=== PATIENT | female | born 1960 | race Asian ===

== ENCOUNTER → 2020-07-07 | Outpatient (CLI) | payer MEDICAID ==
[~2020-07-07] MED LIST: ACET-2708 PO; AMIT25TA9 PO; BACL20TA PO; BISA-81 PO; BUPR450F2 BC; CALC1CAP22 PO; CARI350T27 PO; CELE100C PO; CHOL100044 PO; CLOB60CR4 TP; DICL100G31 TP; DOCU-138 PO; FISH1CAP34 PO; FLUO15CR2 TP; FLUO20CA33 PO; FLUO60SO3 TP; GABA-532 PO; LEVO75TA7 PO; LIDO30CR TP; LOVA40TA73 PO; MELA5TAB19 PO; METF-414 PO; METH-774 PO; METO-539 PO; MULT-1146 PO; TAPE75TA2 PO; TRAZ150T78 PO
== END | disposition home or self-care (01) ==
LOC: LAB 10:46
PROVIDERS: ATTEND Neurological Surgery
DX: Z01.812 Encounter for preprocedural laboratory examination (principal); Z20.822 Contact with and (suspected) exposure to COVID-19
CPT/HCPCS: 87426

== ENCOUNTER 2020-07-09 05:30 | Inpatient (IN) | payer MEDICAID ==
[~2020-07-09] VITALS: Ht 152.4 cm; Wt 57.2 kg
[~2020-07-09 05:30] MED LIST changes: -AMIT25TA9 PO; -BACL20TA PO; -CALC1CAP22 PO; -CARI350T27 PO; -CHOL100044 PO; -CLOB60CR4 TP; -DICL100G31 TP; -FISH1CAP34 PO; -FLUO15CR2 TP; -FLUO60SO3 TP; -GABA-532 PO; -LIDO30CR TP; -LOVA40TA73 PO; -MELA5TAB19 PO; -METH-774 PO; -MULT-1146 PO; -TAPE75TA2 PO
[2020-07-09] MEDS ORDERED: LACTATED RINGERS 1,000 ML IV SCH (06:00)
[2020-07-09] MEDS ORDERED: THROMBIN (BOVINE) 5000 UNITS/VIAL TOP ONE (06:07)
[2020-07-09] MEDS ORDERED: SODIUM CHLORIDE 0.9% INJ 10ML FLUSH IVF ONE (06:07)
[2020-07-09] MEDS ORDERED: BACITRACIN 50,000 UNITS/VIAL ONE (06:07)
[2020-07-09] MEDS ORDERED: GLYCOPYRROLATE 0.2 MG/ML 2ML VIAL ONE (07:00)
[2020-07-09] MEDS ORDERED: NEOSTIGMINE METHYLSULFATE 1MG/ML 10 ML VIAL ONE (07:00)
[2020-07-09] MEDS ORDERED: ROCURONIUM BROMIDE 10MG/ML VIAL 5ML IV ONE (07:00)
[2020-07-09] MEDS ORDERED: MIDAZOLAM HCL 2 MG/2 ML VIAL ONE (07:00)
[2020-07-09] MEDS ORDERED: PROPOFOL 200MG/20ML VIAL IV ONE (07:00)
[2020-07-09] MEDS ORDERED: FENTANYL CITRATE/PF 50MCG/ML 2ML VIAL ONE (07:00)
[2020-07-09] MEDS ORDERED: ONDANSETRON HCL 4MG/2ML INJ IV PRN ×3 (07:15→09:45)
[2020-07-09] MEDS ORDERED: HYDRALAZINE 20MG/ML VIAL IV PRN (07:15)
[2020-07-09] MEDS ORDERED: MEPERIDINE HCL/PF 25MG/ML CPJ IV PRN ×2 (07:45→09:45)
[2020-07-09] MEDS ORDERED: HYDROMORPHONE HCL/PF 2MG/ML CPJ IV PRN (07:45)
[2020-07-09] MEDS ORDERED: LABETALOL 5MG/ML SYR 20 MG/4 ML SYRINGE IV PRN ×2 (07:45→09:45)
[2020-07-09] MEDS ORDERED: DEXAMETHASONE 4MG/ML 1ML VIAL ONE (07:46)
[2020-07-09] MEDS ORDERED: HYDROMORPHONE HCL/PF 2MG/ML (OR) ONE (08:37)
[2020-07-09] MEDS ORDERED: NALOXONE INJ IV PRN (09:15)
[2020-07-09] MEDS ORDERED: ONDANSETRON INJ IV PRN (09:15)
[2020-07-09] MEDS: HYDROMORPHONE PCA 10MG/50ML IV PRN (09:23)
[2020-07-09] MEDS: DEXT 5%/LACTATED RINGERS 1,000 ML IV SCH ×2 (09:55→20:00)
[2020-07-09] MEDS: HYDROMORPHONE HCL/PF 2MG/ML CPJ IV PRN ×3 (10:01→11:19)
[2020-07-09] MEDS ORDERED: DIPHENHYDRAMINE 50MG/ML VIAL IV SCH (12:15)
[2020-07-09] MEDS ORDERED: CEFAZOLIN SODIUM 1000MG/VIAL IV SCH (14:00)
[2020-07-09 15:00] VITALS: BP 104/47
[2020-07-09] MEDS ORDERED: DICL1KIT14 TP (16:46)
[2020-07-09] MEDS ORDERED: LIDO28.35 TP (16:46)
[2020-07-09] MEDS ORDERED: LOVA10TA54 MT (16:46)
[2020-07-09] MEDS ORDERED: IPRATROPIUM/ALBUTEROL 0.5-3(2.5)MG/3ML NEB HHN PRN (17:30)
[2020-07-09] MEDS ORDERED: BISACODYL 5MG TABLET PO PRN (17:30)
[2020-07-09] MEDS: CEFAZOLIN 1000MG PREMIX 50 ML IV SCH (18:37)
[2020-07-09] MEDS: DIPHENHYDRAMINE INJ IV PRN (21:29)
[2020-07-10] VITALS: BP 103/50
[2020-07-10] MEDS: CEFAZOLIN 1000MG PREMIX 50 ML IV SCH (02:10)
[2020-07-10] MEDS: DIPHENHYDRAMINE INJ IV PRN ×2 (02:11→06:13)
[2020-07-10] MEDS: HYDROMORPHONE PCA 10MG/50ML IV PRN ×2 (02:52→23:11)
[2020-07-10 04:00] VITALS: BP 122/54
[2020-07-10] MEDS: DEXT 5%/LACTATED RINGERS 1,000 ML IV SCH (06:13)
[2020-07-10 07:01] LABS: CHLORIDE 107 mEq/L (98-107)
[2020-07-10 07:36] LABS: BASOPHILS % 0.1 % (0.0-2.0); HEMATOCRIT. 34.4 % (36.0-48.0); HEMOGLOBIN. 11.5 g/dL (12.0-16.0); LYMPHOCYTES % 40.8 % (20.0-50.0); MEAN CORPUSCULAR HEMOGLOBIN 33.2 pg (28.0-32.0); MEAN CORPUSCULAR VOLUME 99.6 fL (81.0-99.0); MEAN PLATELET VOLUME 7.7 fl (7.4-10.4); MONOCYTES % 7.8 % (2.0-8.0); NEUTROPHILS % 51.3 % (40.0-76.0); PLATELET 223 x1000/uL (130-400); RED BLOOD CELL COUNT 3.46 mill/uL (4.2-5.4); RED CELL DISTRIBUTION WIDTH 13.8 % (11.6-14.6)
[2020-07-10 08:00] VITALS: BP 117/56
[2020-07-10] MEDS: DOCUSATE SODIUM 100MG CAPSULE PO SCH (09:02)
[2020-07-10] MEDS: HYDROCODONE/APAP 7.5/325MG 1 TAB TABLET PO PRN (09:49)
[2020-07-10] MEDS: LEVOTHYROXINE SODIUM 75MCG TABLET PO SCH (11:34)
[2020-07-10] MEDS ORDERED: CEFAZOLIN 1000MG PREMIX 50 ML IV SCH (12:00)
[2020-07-10] MEDS ORDERED: DEXTROSE 50% WATER 50ML SYRINGE IV PRN (13:30)
[2020-07-10] MEDS ORDERED: HYDRALAZINE 5 MG in SODIUM CHLORIDE 0.9% 49.5 ML IV PRN (14:00)
[2020-07-10] MEDS: FLUOXETINE HCL 20MG CAPSULE PO SCH (14:20)
[2020-07-10] MEDS: METFORMIN HCL 500MG TABLET PO SCH ×2 (14:20→17:06)
[2020-07-10] MEDS: BLOOD SUGAR DIAGNOSTIC STRIP TEST SCH ×2 (17:05→21:40)
[2020-07-10] MEDS: INSULIN LISPRO 100 UNITS/ML SUBCUT SCH ×2 (17:06→21:00)
[2020-07-10] MEDS: METOPROLOL TARTRATE 50MG TABLET PO SCH (17:15)
[2020-07-10 20:00] VITALS: BP 143/67
[2020-07-10] MEDS: TRAZODONE HCL 50MG TABLET PO SCH (21:40)
[2020-07-10] MEDS: ATORVASTATIN CALCIUM 10MG TABLET PO SCH (21:40)
[2020-07-11] VITALS: BP 120/63
[2020-07-11 04:00] VITALS: BP 138/69
[2020-07-11] MEDS: BLOOD SUGAR DIAGNOSTIC STRIP TEST SCH ×4 (06:46→21:01)
[2020-07-11] MEDS: LEVOTHYROXINE SODIUM 75MCG TABLET PO SCH (06:58)
[2020-07-11] MEDS: INSULIN LISPRO 100 UNITS/ML SUBCUT SCH ×4 (07:50→21:08)
[2020-07-11 08:00] VITALS: BP 144/57
[2020-07-11] MEDS: DOCUSATE SODIUM 100MG CAPSULE PO SCH (08:51)
[2020-07-11] MEDS: METFORMIN HCL 500MG TABLET PO SCH ×2 (08:51→17:00)
[2020-07-11] MEDS: FLUOXETINE HCL 20MG CAPSULE PO SCH (08:51)
[2020-07-11] MEDS: METOPROLOL TARTRATE 50MG TABLET PO SCH ×2 (08:51→21:01)
[2020-07-11 12:00] VITALS: BP 140/71
[2020-07-11] MEDS: HYDROCODONE/APAP 7.5/325MG 1 TAB TABLET PO PRN (12:30)
[2020-07-11] MEDS: HYDROMORPHONE HCL/PF 2MG/ML CPJ IV PRN ×2 (14:22→19:32)
[2020-07-11 16:00] VITALS: BP 125/72
[2020-07-11 20:00] VITALS: BP 118/61
[2020-07-11] MEDS: ATORVASTATIN CALCIUM 10MG TABLET PO SCH (21:00)
[2020-07-11] MEDS: TRAZODONE HCL 50MG TABLET PO SCH (21:00)
[2020-07-12] VITALS: BP 132/62
[2020-07-12] MEDS: HYDROMORPHONE HCL/PF 2MG/ML CPJ IV PRN ×6 (00:06→21:42)
[2020-07-12] MEDS: LEVOTHYROXINE SODIUM 75MCG TABLET PO SCH (06:39)
[2020-07-12] MEDS: BLOOD SUGAR DIAGNOSTIC STRIP TEST SCH ×4 (06:40→20:36)
[2020-07-12] MEDS: INSULIN LISPRO 100 UNITS/ML SUBCUT SCH ×4 (07:50→20:44)
[2020-07-12 08:00] VITALS: BP 128/77
[2020-07-12] MEDS: DOCUSATE SODIUM 100MG CAPSULE PO SCH (08:30)
[2020-07-12] MEDS: FLUOXETINE HCL 20MG CAPSULE PO SCH (08:30)
[2020-07-12] MEDS: METFORMIN HCL 500MG TABLET PO SCH ×2 (08:30→19:34)
[2020-07-12] MEDS: METOPROLOL TARTRATE 50MG TABLET PO SCH ×2 (08:30→20:36)
[2020-07-12] MEDS: HYDROCODONE/APAP 7.5/325MG 1 TAB TABLET PO PRN ×4 (11:19→23:46)
[2020-07-12 12:00] VITALS: BP 112/55
[2020-07-12 15:59] VITALS: BP 95/45
[2020-07-12 20:00] VITALS: BP 94/49
[2020-07-12] MEDS: TRAZODONE HCL 50MG TABLET PO SCH (20:35)
[2020-07-12] MEDS: ATORVASTATIN CALCIUM 10MG TABLET PO SCH (20:35)
[2020-07-12] MEDS: GABAPENTIN 100MG CAPSULE PO SCH (21:42)
[2020-07-13] VITALS: BP 89/42
[2020-07-13] MEDS: HYDROMORPHONE HCL/PF 2MG/ML CPJ IV PRN ×5 (01:51→20:07)
[2020-07-13] MEDS: HYDROCODONE/APAP 7.5/325MG 1 TAB TABLET PO PRN ×5 (03:53→22:21)
[2020-07-13] MEDS: DEXT 5%/LACTATED RINGERS 1,000 ML IV SCH ×2 (03:57→18:36)
[2020-07-13 04:00] VITALS: BP 111/63
[2020-07-13] MEDS: LEVOTHYROXINE SODIUM 75MCG TABLET PO SCH (06:39)
[2020-07-13] MEDS: GABAPENTIN 100MG CAPSULE PO SCH ×3 (06:39→21:15)
[2020-07-13] MEDS: BLOOD SUGAR DIAGNOSTIC STRIP TEST SCH ×4 (07:24→20:41)
[2020-07-13] MEDS: INSULIN LISPRO 100 UNITS/ML SUBCUT SCH ×4 (07:50→20:40)
[2020-07-13 08:00] VITALS: BP 110/55
[2020-07-13] MEDS: DOCUSATE SODIUM 100MG CAPSULE PO SCH (08:47)
[2020-07-13] MEDS: METFORMIN HCL 500MG TABLET PO SCH ×2 (08:47→18:16)
[2020-07-13] MEDS: FLUOXETINE HCL 20MG CAPSULE PO SCH (08:47)
[2020-07-13] MEDS: METOPROLOL TARTRATE 50MG TABLET PO SCH ×2 (08:47→20:40)
[2020-07-13 12:00] VITALS: BP 98/50
[2020-07-13 16:00] VITALS: BP 118/59
[2020-07-13 18:18] LABS: BASOPHILS % 0.3 % (0.0-2.0); EOSINOPHILS % 1.6 % (0.0-5.0); HEMATOCRIT. 33.7 % (36.0-48.0); HEMOGLOBIN. 11.1 g/dL (12.0-16.0); LYMPHOCYTES % 36.3 % (20.0-50.0); MEAN CORPUSCULAR HEMOGLOBIN 32.7 pg (28.0-32.0); MEAN CORPUSCULAR VOLUME 99.1 fL (81.0-99.0); MEAN PLATELET VOLUME 7.4 fl (7.4-10.4); MONOCYTES % 9.3 % (2.0-8.0); NEUTROPHILS % 52.5 % (40.0-76.0); PLATELET 250 x1000/uL (130-400); RED BLOOD CELL COUNT 3.39 mill/uL (4.2-5.4); RED CELL DISTRIBUTION WIDTH 13.4 % (11.6-14.6)
[2020-07-13 18:32] LABS: CHLORIDE 109 mEq/L (98-107)
[2020-07-13 20:00] VITALS: BP 120/54
[2020-07-13] MEDS: DIPHENHYDRAMINE INJ IV PRN (20:39)
[2020-07-13] MEDS: ATORVASTATIN CALCIUM 10MG TABLET PO SCH (20:39)
[2020-07-13] MEDS: TRAZODONE HCL 50MG TABLET PO SCH (20:39)
[2020-07-13] MEDS: METHOCARBAMOL 500MG TABLET PO PRN (21:16)
[2020-07-14] VITALS: BP 121/53
[2020-07-14] MEDS: DEXT 5%/LACTATED RINGERS 1,000 ML IV SCH ×2 (00:12→10:09)
[2020-07-14] MEDS: HYDROMORPHONE HCL/PF 2MG/ML CPJ IV PRN ×2 (00:16→05:14)
[2020-07-14 04:00] VITALS: BP 146/54
[2020-07-14] MEDS: GABAPENTIN 100MG CAPSULE PO SCH ×3 (06:38→21:00)
[2020-07-14] MEDS: LEVOTHYROXINE SODIUM 75MCG TABLET PO SCH (06:38)
[2020-07-14] MEDS: BLOOD SUGAR DIAGNOSTIC STRIP TEST SCH ×4 (06:53→20:53)
[2020-07-14] MEDS: INSULIN LISPRO 100 UNITS/ML SUBCUT SCH ×4 (07:50→20:53)
[2020-07-14 08:00] VITALS: BP 125/75
[2020-07-14] MEDS ORDERED: POTASSIUM CHLORIDE 20MEQ TABLET SR PO SCH (08:30)
[2020-07-14] MEDS: DOCUSATE SODIUM 100MG CAPSULE PO SCH (09:27)
[2020-07-14] MEDS: METOPROLOL TARTRATE 50MG TABLET PO SCH ×3 (09:27→21:00)
[2020-07-14] MEDS: FLUOXETINE HCL 20MG CAPSULE PO SCH (09:27)
[2020-07-14] MEDS: METFORMIN HCL 500MG TABLET PO SCH ×2 (09:27→18:06)
[2020-07-14] MEDS: HYDROCODONE/APAP 7.5/325MG 1 TAB TABLET PO PRN ×5 (10:09→20:52)
[2020-07-14 12:00] VITALS: BP 101/53
[2020-07-14 16:00] VITALS: BP 115/70
[2020-07-14 20:00] VITALS: BP 144/87
[2020-07-14] MEDS: TRAZODONE HCL 50MG TABLET PO SCH (20:51)
[2020-07-14] MEDS: ATORVASTATIN CALCIUM 10MG TABLET PO SCH (20:52)
[2020-07-14] MEDS: METHOCARBAMOL 500MG TABLET PO PRN (20:54)
[2020-07-14] MEDS: DIPHENHYDRAMINE INJ IV PRN (23:56)
[2020-07-15] VITALS: BP 142/72
[2020-07-15] MEDS: HYDROCODONE/APAP 7.5/325MG 1 TAB TABLET PO PRN ×3 (03:06→15:42)
[2020-07-15 04:00] VITALS: BP 134/74
[2020-07-15 06:06] LABS: BASOPHILS % 0.5 % (0.0-2.0); EOSINOPHILS % 1.1 % (0.0-5.0); HEMATOCRIT. 35.9 % (36.0-48.0); LYMPHOCYTES % 38.1 % (20.0-50.0); MEAN CORPUSCULAR VOLUME 98.4 fL (81.0-99.0); MEAN PLATELET VOLUME 7.3 fl (7.4-10.4); MONOCYTES % 9.8 % (2.0-8.0); NEUTROPHILS % 50.5 % (40.0-76.0); PLATELET 320 x1000/uL (130-400); RED BLOOD CELL COUNT 3.65 mill/uL (4.2-5.4); RED CELL DISTRIBUTION WIDTH 13.1 % (11.6-14.6)
[2020-07-15] MEDS: GABAPENTIN 100MG CAPSULE PO SCH ×2 (06:27→13:55)
[2020-07-15] MEDS: LEVOTHYROXINE SODIUM 75MCG TABLET PO SCH (06:27)
[2020-07-15] MEDS: INSULIN LISPRO 100 UNITS/ML SUBCUT SCH ×2 (06:33→12:50)
[2020-07-15] MEDS: BLOOD SUGAR DIAGNOSTIC STRIP TEST SCH ×3 (06:33→17:39)
[2020-07-15 06:50] LABS: CHLORIDE 108 mEq/L (98-107)
[2020-07-15 08:00] VITALS: BP 169/97
[2020-07-15] MEDS: DOCUSATE SODIUM 100MG CAPSULE PO SCH (09:56)
[2020-07-15] MEDS: METFORMIN HCL 500MG TABLET PO SCH ×2 (09:56→17:39)
[2020-07-15] MEDS: METOPROLOL TARTRATE 50MG TABLET PO SCH (09:56)
[2020-07-15] MEDS: FLUOXETINE HCL 20MG CAPSULE PO SCH (09:57)
[2020-07-15 12:00] VITALS: BP 122/65
[2020-07-15 16:00] VITALS: BP 139/64
== END 2020-07-15 18:02 | disposition home health service (06) | DRG 310 ==
LOC: OR 05:30 → 6EST 05:31
PROVIDERS: ADMIT Neurological Surgery; ATTEND Neurological Surgery
PROC: 01NB0ZZ Release Lumbar Nerve, Open Approach (ICD-10-PCS; principal; 2020-07-09)
PROC: 0SB40ZZ Excision of Lumbosacral Disc, Open Approach (ICD-10-PCS; 2020-07-09)
PROC: 01NR0ZZ Release Sacral Nerve, Open Approach (ICD-10-PCS; 2020-07-09)
PROC: 4A11X4Z Monitoring of Peripheral Nervous Electrical Activity, External Approach (ICD-10-PCS; 2020-07-09)
DX: M51.17 Intervertebral disc disorders with radiculopathy, lumbosacral region (principal); E06.3 Autoimmune thyroiditis; E11.9 Type 2 diabetes mellitus without complications; I10 Essential (primary) hypertension; L40.9 Psoriasis, unspecified; G82.20 Paraplegia, unspecified; F32.9 Major depressive disorder, single episode, unspecified; G89.4 Chronic pain syndrome; R13.10 Dysphagia, unspecified; Z96.653 Presence of artificial knee joint, bilateral; D64.9 Anemia, unspecified; D72.829 Elevated white blood cell count, unspecified; R26.9 Unspecified abnormalities of gait and mobility; M48.07 Spinal stenosis, lumbosacral region; Z79.84 Long term (current) use of oral hypoglycemic drugs; Z82.49 Family history of ischemic heart disease and other diseases of the circulatory system; Z98.1 Arthrodesis status; Z79.891 Long term (current) use of opiate analgesic
CPT/HCPCS: 36415; 72100; 76000; 80048; 82962; 83036; 85025; 86850; 86900; 88304; 88311; 92610; 95863; 95925; 95926; 95928; 95929; 97110; 97116; 97162; 97166; 97530; 97535; C1893; J0690; J1100; J1170; J1200; J1815; J2250; J2405; J2704; J2710; J3010; J3490; J7121